=== PATIENT | female | born 1980 | race Caucasian/White ===

== ENCOUNTER 2019-06-01 13:24 | Emergency (ER) | payer MEDICAID ==
[~2019-06-01] VITALS: Ht 162.6 cm; Wt 53.5 kg
[~2019-06-01 13:24] MED LIST: IBUP800T48 PO; MED4DP PO
[2019-06-01 13:40] VITALS: BP 141/71; PULSE 79; RESP 18; Ht 162.6 cm; Wt 53.5 kg
[2019-06-01] MEDS ORDERED: KETOROLAC 60 MG INJ IM STA (14:12)
[2019-06-01] MEDS ORDERED: DEXAMETHASONE 10 MG/ML 1 ML INJ IM ONE (14:30)
== END 2019-06-01 15:23 | disposition home or self-care (01) ==
LOC: FTE 13:24
DX: R51 Headache (principal)
CPT/HCPCS: 81003; 81025; 96372; J1100; J1885; Z7502